=== PATIENT | female | born 1995 | race Caucasian/White ===

== ENCOUNTER 2018-05-26 17:13 | Outpatient (CLI) | payer OTHER ==
--- NOTE | 2018-05-26 19:04 | RAD ---
TWO VIEW CHEST: 05/26/18 HISTORY: Cough. The lungs appear clear. Heart and mediastinum unremarkable. IMPRESSION: No acute process. POS: [facility]
== END 2018-05-26 17:14 | disposition home or self-care (01) ==
LOC: SCSRAD 17:13
PROVIDERS: ATTEND Family Medicine
DX: R05 Cough (principal)
CPT/HCPCS: 71046